=== PATIENT | female | born 1965 | race Caucasian/White ===

== ENCOUNTER → 2021-02-25 | Outpatient (CLI) | payer OTHER | LOC: SLEEP 14:35 | DX: G47.33 Obstructive sleep apnea (adult) (pediatric) (principal); R51.9 Headache, unspecified | CPT/HCPCS: 95810 ==

== ENCOUNTER → 2021-03-01 | Outpatient (CLI) | payer OTHER | LOC: HEART 5 08:20 | DX: R06.02 Shortness of breath (principal) | CPT/HCPCS: 93306 ==

== ENCOUNTER → 2021-03-15 | Outpatient (CLI) | payer OTHER | LOC: HEART 5 09:29 | DX: R06.02 Shortness of breath (principal) | CPT/HCPCS: 94060; 94729 ==

== ENCOUNTER → 2021-08-31 | Outpatient (CLI) | payer OTHER | LOC: LAB 16:06 | DX: R09.02 Hypoxemia (principal) | CPT/HCPCS: 36600; 82803 ==